=== PATIENT | female | born 1995 | race Caucasian/White ===

== ENCOUNTER 2018-07-19 07:27 | Day surgery (SDC) | payer BC ==
[~2018-07-19] VITALS: Ht 159.8 cm; Wt 72.6 kg
[2018-07-19] MEDS ORDERED: PIRMELLA 1/351 TAB PO (08:06)
[2018-07-19] MEDS ORDERED: LEXAPRO20 MG PO (08:07)
[2018-07-19] MEDS ORDERED: WELLBUTRIN XL150 MG PO (08:07)
[2018-07-19] MEDS ORDERED: GLUCOPHAGE XR500 M1 PO (08:08)
[2018-07-19] MEDS ORDERED: ZANTAC 150MG T150 MG PO (08:09)
[2018-07-19 08:11] VITALS: BP 112/88; PULSE 88; TEMP 98.1
[2018-07-19 09:40] VITALS: BP 96/79; PULSE 78; TEMP 97.8
--- NOTE | 2018-07-19 09:40 | NUR ---
TO [facility]AY 3 VIA CART FROM [facility] ROOM, PT WALKED TO CHAIR, CALL LIGHT IN REACH. SIPS ON WATER, WILL CALL FRIEND WHEN DISCHARGED
[2018-07-19 09:55] VITALS: BP 103/70; PULSE 74
[2018-07-19 10:10] VITALS: BP 105/74; PULSE 68
--- NOTE | 2018-07-19 10:10 | NUR ---
DR DENNIS INTO SEE PT, PT TAKES APOLLO, NO C/O
[2018-07-19 10:25] VITALS: BP 102/63; PULSE 63
--- NOTE | 2018-07-19 10:25 | NUR ---
REVIEWED DISCHARGE INST. WITH PT, FRIEND IN ROOM, REVIEWED PRECAUTIONS, ACTIVITY AND FOLLOWUP WITH VERBAL UNDERSTANDING. PT UP AND DRESSED, AND DISCHARGED VIA W/C TO CAR AT 1030
== END 2018-07-19 10:30 | disposition home or self-care (01) ==
LOC: SDCO 07:27
DX: K21.0 Gastro-esophageal reflux disease with esophagitis (principal); K44.9 Diaphragmatic hernia without obstruction or gangrene; Z79.84 Long term (current) use of oral hypoglycemic drugs; K59.09 Other constipation; E28.2 Polycystic ovarian syndrome
CPT/HCPCS: J2250; J2405; J3010; J7030

== ENCOUNTER → 2018-08-29 | Outpatient (CLI) | payer BC ==
[~2018-08-29] MED LIST: GLUCOPHAGE XR500 M1 PO; LEXAPRO20 MG PO; PIRMELLA 1/351 TAB PO; WELLBUTRIN XL150 MG PO; ZANTAC 150MG T150 MG PO
== END ==
LOC: COL.RAD 09:38
DX: G47.10 Hypersomnia, unspecified (principal); R25.1 Tremor, unspecified
CPT/HCPCS: A9585

== ENCOUNTER → 2019-05-23 | Outpatient (CLI) | payer BC | LOC: COL.LAB 16:30 | DX: R00.0 Tachycardia, unspecified (principal) ==

== ENCOUNTER → 2019-05-28 | Outpatient (CLI) | payer BC | LOC: COL.CARD 07:30 | DX: R00.0 Tachycardia, unspecified (principal) ==

== ENCOUNTER → 2019-06-13 | Outpatient (CLI) | payer BC ==
[2019-06-13 10:38] LABS: CHOLESTEROL RISK RATIO 4.8
== END ==
LOC: COL.LAB 10:09
PROVIDERS: Family Medicine
DX: E28.2 Polycystic ovarian syndrome (principal); Z79.899 Other long term (current) drug therapy